=== PATIENT | female | born 1955 | race Caucasian/White ===

== ENCOUNTER 2018-08-31 18:07 | Inpatient (IN) ==
[2018-08-31] MEDS ORDERED: Sodium Chlor 0.9% Inj 500 ML IV.SIG SCH (20:00)
[2018-08-31 20:46] LABS: Baso % (Auto) 0.7 % (0.0-2.0); Hematocrit 40.7 % (35.0-46.0); Hemoglobin 14.3 gm/dL (11.6-15.3); Lymph # (Auto) 1.2 th/mm3 (1.0-4.8); Lymph % (Auto) 24.9 % (9.0-44.0); Mean Corpuscular HGB Conc 35.1 % (32.0-36.0); Mean Corpuscular Hemoglobin 31.2 pg (27.0-34.0); Mean Corpuscular Volume 88.7 fL (80.0-100.0); Mean Platelet Volume 8.8 fL (7.0-11.0); Mono # (Auto) 0.4 th/mm3 (0.0-0.9); Mono % (Auto) 9.5 % (0.0-8.0); Neut % (Auto) 63.9 % (16.0-70.0); Platelet Count 211 th/mm3 (150-450); Red Blood Count 4.59 mil/mm3 (4.00-5.30); Red Cell Distribution Width 13.6 % (11.6-17.2); White Blood Count 4.7 th/mm3 (4.0-11.0)
--- NOTE | 2018-08-31 20:57 | ED ---
HPI General Chief complaint: Medical Clearance Stated complaint: low salt level Time Seen by Provider: 08/31/18 19:10 Source: patient Mode of arrival: ambulatory Limitations: no limitations History of Present Illness HPI narrative: 62-year-old female came to the emergency room with history of generalized weakness and not feeling well. Patient says that this has been going on for past 2 days. She has history of hyperthyroidism and in the past whenever she has felt like this it is either from her thyroid level going low or too low or excessive sodium. She has received fluids in the past for this and that has made her felt better. Patient is expecting something similar at this time as well. Vital signs were stable. Patient denies of any pain anywhere. Patient denies of any vomiting or diarrhea episode. No aggravating or relieving symptoms identified. Patient says that the last time she had something similar was about 2 years ago. Onset (ago): day(s) (2) Relieving factors: none Exacerbating factors: none Associated symptoms: Reports malaise Related Data Home Medications Medication Instructions Recorded Confirmed albuterol sulfate [ProAir HFA] 1 puff INHALATION DAILY 08/31/18 08/31/18 glycopyrrolate-formoterol [Bevespi 1 puff INHALATION DAILY 08/31/18 08/31/18 Aerosphere] lisinopril 10 mg PO DAILY 08/31/18 08/31/18 methimazole 5 mg PO DAILY 08/31/18 08/31/18 [id number]-lqy-KE-lycopen-lutein 1 tab PO DAILY 08/31/18 08/31/18 [facility] sodium chloride 1,000 mg PO TID 08/31/18 08/31/18 Allergies Allergy/AdvReac Type Severity Reaction Status Date / Time penicillin G Allergy Severe Anaphylaxis Verified 08/31/18 18:22 amoxicillin Allergy Mild Hives Verified 08/31/18 18:22 Review of Systems ROS: all other systems reviewed are negative Constitutional Reports fatigue PMFSH Medical History Medical History Asthma (Acute) Hypertension (Acute) Hyponatremia (Acute) Social History Social History Substance History: Past History Second Hand Smoke Exposure: Yes Smoking Status: Never smoker How Often Do You Have a Drink Containing Alcohol: Never Recent Travel in [facility] within the Last 8 Weeks: No Recent Out of Country Travel within the Last 8 Weeks: No Immunization History Tetanus Immunization: <5 Years Exam Narrative Exam Narrative: GENERAL: Awake, alert, anxious, mild distress SKIN: Focused skin assessment warm/dry. HEAD: Atraumatic. Normocephalic. EYES: Pupils equal and round. No scleral icterus. No injection or drainage. Exophthalmus ENT: No nasal bleeding or discharge. Mucous membranes pink and moist. NECK: Trachea midline. No JVD. CARDIOVASCULAR: Regular rate and rhythm. No murmur appreciated. RESPIRATORY: No accessory muscle use. Clear to auscultation. Breath sounds equal bilaterally. GASTROINTESTINAL: Abdomen soft, non-tender, nondistended. Hepatic and splenic margins not palpable. MUSCULOSKELETAL: No obvious deformities. No clubbing. No cyanosis. No edema. NEUROLOGICAL: Awake and alert. No obvious cranial nerve deficits. Motor grossly within normal limits. Normal speech. PSYCHIATRIC: Appropriate mood and affect; insight and judgment normal. Course Initial Documented Vital Signs Temperature 98.4 F 08/31/18 18:11 Pulse Rate 81 08/31/18 18:11 Respiratory Rate 16 08/31/18 18:11 Blood Pressure 147/92 H 08/31/18 18:11 Pulse Oximetry 98 08/31/18 18:11 Last Documented Vital Signs Temperature 98.3 F 09/01/18 12:00 Pulse Rate 81 09/01/18 12:00 Respiratory Rate 16 09/01/18 12:00 Blood Pressure 141/80 H 09/01/18 12:00 Pulse Oximetry 99 09/01/18 12:00 Critical Care Time Critical Care Time: Yes Total Critical Care Time: 30 Attestation: Aggregate critical care time was 30 minutes. Time to perform other separately billable procedures was not included in the critical care time. My time did not include minutes spent treating any other patients simultaneously or on activities that did not directly contribute to the patient's treatment. The services I provided to this patient were to treat and/or prevent clinically significant deterioration that could result in: Critical hyponatremia, hypothyroidism, normal saline replacement I provided critical care services requiring my management, as noted below: Chart data review, documentation time, medication orders and management, vital sign assessments/reviewing monitor data, ordering and reviewing lab tests, ordering and interpreting/reviewing x-rays and diagnostic studies, care of the patient and discussion of the patient with the admitting physicians. Medical Decision Making MDM Narrative Medical decision making narrative: 8:56 PM CBC is back and within acceptable limits. Awaiting for chemistry. Patient is getting 500 mL's of normal saline bolus. TSH and free T4 has also been ordered. If test results are within normal limits and patient will be discharged home. 10:58 PM blood test result shows critical hyponatremia, hypochloremia and hypothyroidism. Patient was given another liter of IV fluid normal saline bolus. I have ordered for 200 mcg of p.o. Synthroid. Patient has been admitted to the hospitalist. I just updated the patient about her test results and the plan. She is agreeable to it. Medical Screen Exam Complete: Yes Emergency Medical Condition: Yes Lab Data Result diagrams: 09/01/18 10:33 09/01/18 10:34 Lab Results 08/31/18 08/31/18 08/31/18 Range/Units 20:05 20:05 23:25 WBC 4.7 (4.0-11.0) th/mm3 RBC 4.59 (4.00-5.30) mil/mm3 Hgb 14.3 (11.6-15.3) gm/dL Hct 40.7 (35.0-46.0) % MCV 88.7 (80.0-100.0) fL MCH 31.2 (27.0-34.0) pg MCHC 35.1 (32.0-36.0) % RDW 13.6 (11.6-17.2) % Plt Count 211 (150-450) th/mm3 MPV 8.8 (7.0-11.0) fL Neut % (Auto) 63.9 (16.0-70.0) % Lymph % (Auto) 24.9 (9.0-44.0) % [place] % (Auto) 9.5 H (0.0-8.0) % Eos % (Auto) 1.0 (0.0-4.0) % Baso % (Auto) 0.7 (0.0-2.0) % Neut # (Auto) 3.0 (1.8-7.7) th/mm3 Lymph # (Auto) 1.2 (1.0-4.8) th/mm3 [place] # (Auto) 0.4 (0.0-0.9) th/mm3 Eos # (Auto) 0.0 (0.0-0.4) th/mm3 Baso # (Auto) 0.0 (0.0-0.2) th/mm3 WBC Differential . Differential Comment Auto diff final Sodium 120 L* (136-145) meq/L Potassium 4.0 (3.5-5.1) meq/L Chloride 83 L (98-107) meq/L Carbon Dioxide 24.7 (21.0-32.0) meq/L Anion Gap 12 (5-15) meq/L BUN 8 (7-18) mg/dL Creatinine 0.69 (0.50-1.00) mg/dL Estimated GFR 86 L (>89) mL/min Random Glucose 86 (74-106) mg/dL Calcium 8.6 (8.5-10.1) mg/dL Total Bilirubin 0.8 (0.2-1.0) mg/dL AST 29 (15-37) U/L ALT 30 (10-53) U/L Alkaline Phosphatase 72 (45-117) U/L Total Protein 7.8 (6.4-8.2) g/dL Albumin 4.3 (3.4-5.0) g/dL TSH 11.600 H (0.358-3.740) uIU/mL Free T4 1.20 (0.76-1.46) ng/dL Urine Color Straw (Yellw/Straw) Urine Clarity Clear (Clear) Urine pH 7.0 (5.0-8.5) Ur Specific [place] 1.004 (1.002-1.035) Urine Protein Negative (Neg-Trace) mg/dL Urine Glucose (UA) Negative (Negative) mg/dL Urine Ketones 20 (Negative) mg/dL Urine Occult Blood Negative (Negative) Urine Nitrate Negative (Negative) Urine Bilirubin Negative (Negative) Urine Urobilinogen Less than 2 (Less than 2) mg/dL Ur Leukocyte Esterase Negative (Negative) Urine RBC Less than 1 (0-3) /hpf Urine WBC Less than 1 (0-5) /hpf Micro UA Comment Culture not ind Ur Microscopic Review Not Reportable Urine Culture Comments Culture not ind 08/31/18 09/01/18 09/01/18 Range/Units 23:30 10:33 10:34 WBC 2.8 L (4.0-11.0) th/mm3 RBC 4.54 (4.00-5.30) mil/mm3 Hgb 14.1 (11.6-15.3) gm/dL Hct 41.3 (35.0-46.0) % MCV 91.0 (80.0-100.0) fL MCH 31.1 (27.0-34.0) pg MCHC 34.2 (32.0-36.0) % RDW 13.4 (11.6-17.2) % Plt Count 174 (150-450) th/mm3 MPV 8.2 (7.0-11.0) fL Neut % (Auto) 70.9 H (16.0-70.0) % Lymph % (Auto) 19.1 (9.0-44.0) % [place] % (Auto) 8.3 H (0.0-8.0) % Eos % (Auto) 0.9 (0.0-4.0) % Baso % (Auto) 0.8 (0.0-2.0) % Neut # (Auto) 2.0 (1.8-7.7) th/mm3 Lymph # (Auto) 0.5 L (1.0-4.8) th/mm3 [place] # (Auto) 0.2 (0.0-0.9) th/mm3 Eos # (Auto) 0.0 (0.0-0.4) th/mm3 Baso # (Auto) 0.0 (0.0-0.2) th/mm3 WBC Differential . Differential Comment Auto diff final Sodium 134 L D 135 L (136-145) meq/L Potassium 3.9 (3.5-5.1) meq/L Chloride 102 D (98-107) meq/L Carbon Dioxide 26.2 (21.0-32.0) meq/L Anion Gap 7 (5-15) meq/L BUN 5 L (7-18) mg/dL Creatinine 0.58 (0.50-1.00) mg/dL Estimated GFR Greater than 89 (>89) mL/min Random Glucose 142 H (74-106) mg/dL Calcium 8.2 L (8.5-10.1) mg/dL Total Bilirubin 0.5 (0.2-1.0) mg/dL AST 21 (15-37) U/L ALT 26 (10-53) U/L Alkaline Phosphatase 65 (45-117) U/L Total Protein 7.4 (6.4-8.2) g/dL Albumin 3.7 D (3.4-5.0) g/dL TSH (0.358-3.740) uIU/mL Free T4 (0.76-1.46) ng/dL Urine Color (Yellw/Straw) Urine Clarity (Clear) Urine pH (5.0-8.5) Ur Specific [place] (1.002-1.035) Urine Protein (Neg-Trace) mg/dL Urine Glucose (UA) (Negative) mg/dL Urine Ketones (Negative) mg/dL Urine Occult Blood (Negative) Urine Nitrate (Negative) Urine Bilirubin (Negative) Urine Urobilinogen (Less than 2) mg/dL Ur Leukocyte Esterase (Negative) Urine RBC (0-3) /hpf Urine WBC (0-5) /hpf Micro UA Comment Ur Microscopic Review Urine Culture Comments Discharge Plan Discharge Disposition Patient Disposition: 30 Still Patient Discharge Condition Condition: Stable Discharge Order Discharge Orders: Discharge Order (Routine); Ordered 09/01/18 Ordered By: Cliff Daniel Physicians Team ED Provider: Oliva Banuelos Primary Care Provider: Sunny Fierro V Attending Provider: Cliff Daniel Status ED Status: Left Department Discharge Information Discharge Date/Time: 09/01/18 01:02
[2018-08-31 22:04] LABS: Alanine Aminotransferase 30 U/L (10-53); Albumin 4.3 g/dL (3.4-5.0); Alkaline Phosphatase 72 U/L (45-117); Anion Gap 12 meq/L (5-15); Aspartate Aminotransferase 29 U/L (15-37); Blood Urea Nitrogen 8 mg/dL (7-18); Calcium 8.6 mg/dL (8.5-10.1); Carbon Dioxide 24.7 meq/L (21.0-32.0); Chloride 83 meq/L (98-107); Glomerular Filtration Rate 86 mL/min (>89); Glucose,Random 86 mg/dL (74-106); Total Protein 7.8 g/dL (6.4-8.2)
[2018-08-31 22:08] LABS: Sodium 120 meq/L (136-145)
[2018-08-31] MEDS ORDERED: Sod Chloride 0.9% Inj 1,000 ML IV.SIG SCH (22:15)
[2018-08-31] MEDS ORDERED: Acetaminophen 325 MG Tablet PO PRN (22:34)
[2018-08-31] MEDS ORDERED: Bisacodyl 10 MG Supp RECTAL PRN (22:34)
--- NOTE | 2018-08-31 22:44 | P.HPIM ---
History of Present Illness Primary Care Physician: Sunny Fierro MD History of Present Illness: This is a 62-year-old female with a PMH of HTN, Asthma, Hypothyroidism and Chronic Hyponatremia to ER with complaints of generalized weakness x2 days, states symptoms similar to previous episodes of hyponatremia. Denies fever, chills, nausea, vomiting or diarrhea. On arrival, BP 147/92, HR 81, O2 sat 98% on RA, Afebrile. CBC unremarkable. Na 120. GFR 86. TSH 11.6, Free T4 1.20. - Diagnosis (1) Hyponatremia (2) Weakness (3) Dehydration Review of Systems PAST FAMILY HISTORY: Reviewed. No h/o DM or CAD All other systems reviewed negative except as stated in HPI PMFSH - History History Provided By: Patient - Medical History Medical History: Medical History (Last Reviewed 08/31/18 @ 20:55 by Oliva Banuelos MD) Asthma Hypertension Hyponatremia - Tobacco History Second Hand Smoke Exposure: Yes Smoking Status: Never smoker - Alcohol History How Often Do You Have a Drink Containing Alcohol: Never - Substance Use History Substance History: No History of Abuse - Travel History Recent Travel in the [place] Within the Last 8 Weeks: No Recent Travel Out of the Country Within the Last 8 Weeks: No - Immunization History Tetanus Immunization: <5 Years Medications and Allergies Active Medications: Active Medications Acetaminophen (Tylenol) 650 mg PO Q4H PRN PRN Reason: Temp > 100.4 Al Hydroxide/Mg Hydroxide (Milk Of Magnesia Liq) 30 ml PO Q12H PRN PRN Reason: Mild Constipation Albuterol (Ventolin Hfa Inh) 1 puff INH DAILY GERARDO Bisacodyl (Dulcolax Supp) 10 mg RECTAL DAILY PRN PRN Reason: SEVERE CONSITIPATION Sodium Chloride (Ns Inj) 500 mls @ 0 mls/hr IV.SIG BOLUS GERARDO Last Admin: 08/31/18 22:13 Dose: 999 mls/hr Sodium Chloride (Ns Inj) 1,000 mls @ 0 mls/hr IV.SIG BOLUS GERARDO Last Admin: 08/31/18 22:13 Dose: 999 mls/hr Sodium Chloride (Ns Inj) 1,000 mls @ 100 mls/hr IV.CONT .Q10H GERARDO Lactulose (Lactulose Liq) 30 ml PO DAILY PRN PRN Reason: SEVERE CONSITIPATION Methimazole (Tapazole) 5 mg PO DAILY [facility] Non-Formulary Medication (Glycopyrrolate-Formoterol [Bevespi Aerosphere]) 1 puff INHALATION DAILY [facility] Ondansetron HCl (Zofran Inj) 4 mg IV.PUSH Q6H PRN PRN Reason: NAUSEA OR VOMITING Senna/Docusate Sodium (Aspen-Colace) 1 tab PO BID [facility] Sennosides (Senokot) 17.2 mg PO Q12H PRN PRN Reason: Moderate Constipation Sodium Chloride (Sodium Chloride) 1 gm PO TID [facility] Allergies Allergy/AdvReac Type Severity Reaction Status Date / Time penicillin G Allergy Severe Anaphylaxis Verified 08/31/18 18:22 amoxicillin Allergy Mild Hives Verified 08/31/18 18:22 Home Medications Medication Instructions Recorded Confirmed Type albuterol sulfate [ProAir HFA] 1 puff INHALATION DAILY 08/31/18 08/31/18 History glycopyrrolate-formoterol [Bevespi 1 puff INHALATION DAILY 08/31/18 08/31/18 History Aerosphere] lisinopril 10 mg PO DAILY 08/31/18 08/31/18 History methimazole 5 mg PO DAILY 08/31/18 08/31/18 History xhqhjgrj-zyh-AE-lycopen-lutein 1 tab PO DAILY 08/31/18 08/31/18 History [[facility]] sodium chloride 1,000 mg PO TID 08/31/18 08/31/18 History Exam Vital signs: Vital Signs 08/31/18 18:11 08/31/18 18:21 Temperature 98.4 F Pulse Rate 81 72 Respiratory Rate 16 20 Blood Pressure 147/92 H 162/92 H Pulse Oximetry 98 100 Intake & Output 08/31/18 08/31/18 09/01/18 06:59 18:59 06:59 Weight 45.359 kg Narrative: PE: GENERAL: Pleasant middle-aged white female in no acute distress,. SKIN: Focused skin assessment warm and dry. HEENT: PERRLA, EOMI. No scleral icterus or conjunctival pallor. No lid lag or facial droop. +exophthalmos CARDIOVASCULAR: Regular rate and rhythm. No obvious murmurs to auscultation. No chest tenderness to palpation. RESPIRATORY: No obvious rhonchi or wheezing. Clear to auscultation. Breath sounds equal bilaterally. GASTROINTESTINAL: Abdomen soft, non-tender, nondistended. BS normal. MUSCULOSKELETAL: Extremities without clubbing, cyanosis, or edema. No obvious deformities. NEUROLOGICAL: Awake, alert and oriented x4. No focal neurologic deficits. Moving both upper and lower extremities spontaneously. PSYCHIATRIC: Appropriate mood and affect. Insight and judgment normal. Results - Labs CBC & Chem 7: 08/31/18 20:05 08/31/18 20:05 Labs: Short CBC 08/31/18 Range/Units 20:05 WBC 4.7 (4.0-11.0) th/mm3 Hgb 14.3 (11.6-15.3) gm/dL Hct 40.7 (35.0-46.0) % Plt Count 211 (150-450) th/mm3 BMP 08/31/18 20:05 Sodium 120 L* Potassium 4.0 Chloride 83 L Carbon Dioxide 24.7 BUN 8 Creatinine 0.69 Calcium 8.6 Liver Function 08/31/18 Range/Units 20:05 Total Bilirubin 0.8 (0.2-1.0) mg/dL AST 29 (15-37) U/L ALT 30 (10-53) U/L Alkaline Phosphatase 72 (45-117) U/L Albumin 4.3 (3.4-5.0) g/dL Caprini VTE Risk Assessment Caprini VTE Risk Assessment: No/Low Risk (score <= 1) Caprini Risk Assessment Model: Point Value = 1 Point Value = 2 Point Value = 3 Point Value = 5 Age 41-60 Minor surgery BMI > 25 kg/m2 Swollen legs Varicose veins or History of unexplained or recurrent spontaneous Oral contraceptives or hormone replacement Sepsis (< 1 month) Serious lung disease, including pneumonia (< 1 month) Abnormal pulmonary function Acute myocardial infarction Congestive heart failure (< 1 month) History of inflammatory bowel disease Medical patient at bed rest Age 61-74 Arthroscopic surgery Major open surgery (> 45 min) Laparoscopic surgery (> 45 min) Malignancy Confined to bed (> 72 hours) Immobilizing plaster cast Central venous access Age >= 75 History of VTE Family history of VTE Factor V Leiden Prothrombin [id number] Lupus anticoagulant Anticardiolipin antibodies Elevated serum homocysteine Heparin-induced thrombocytopenia Other congenital or acquired thrombophilia Stroke (< 1 month) Elective arthroplasty Hip, pelvis, or leg fracture Acute spinal cord injury (< 1 month) Prophylaxis Regimen: Total Risk Factor Score Risk Level Prophylaxis Regimen 0-1 Low Early ambulation 2 Moderate Order ONE of the following: *Sequential Compression Device (SCD) *Heparin 5000 units SQ BID 3-4 Higher Order ONE of the following medications: *Heparin 5000 units SQ TID *Enoxaparin/Lovenox 40 mg SQ daily (WT < 150 kg, CrCl > 30 mL/min) *Enoxaparin/Lovenox 30 mg SQ daily (WT < 150 kg, CrCl > 10-29 mL/min) *Enoxaparin/Lovenox 30 mg SQ BID (WT < 150 kg, CrCl > 30 mL/min) AND/OR *Sequential Compression Device (SCD) 5 or more Highest Order ONE of the following medications: *Heparin 5000 units SQ TID (Preferred with Epidurals) *Enoxaparin/Lovenox 40 mg SQ daily (WT < 150 kg, CrCl > 30 mL/min) *Enoxaparin/Lovenox 30 mg SQ daily (WT < 150 kg, CrCl > 10-29 mL/min) *Enoxaparin/Lovenox 30 mg SQ BID (WT < 150 kg, CrCl > 30 mL/min) AND *Sequential Compression Device (SCD) Assessment and Plan - Assessment (1) Hyponatremia Code(s): E87.1 - Hypo-osmolality and hyponatremia Status: Acute (2) Weakness Code(s): R53.1 - Weakness Status: Acute (3) Dehydration Code(s): E86.0 - Dehydration Status: Acute - Plan A/P: 1. Hyponatremia: Acute on Chronic. Na 120, no mental status changes, no seizure activity. On NaCl tabs, will continue. IVF, check repeat Na tonight and again in am for close monitoring. Telemetry. Seizure Precautions. 2. Weakness: Likely secondary to above, PT for eval/tx. 3. Dehydration: GFR 86, check U/a to eval for underlying UTI, IVF for hydration, monitor I/O, repeat labs in am. 4. DVT Prophylaxis: SCD/Teds 5. Social work for d/c planning as needed 6. Case discussed w/ ER physician at length, labs/records/imaging reviewed by me.
[2018-08-31 23:48] LABS: Bilirubin,Urine Negative (Negative); Clarity,Urine Clear (Clear); Color,Urine Straw (Yellw/Straw); Glucose,Urine (UA) Negative (Negative); Leukocyte Esterase,Urine Negative (Negative); Nitrite,Urine Negative (Negative); Specific Gravity,Urine 1.004 (1.002-1.035)
[2018-08-31] MEDS: Sod Chloride 0.9% Inj 1,000 ML IV.CONT SCH (23:57)
--- NOTE | 2018-09-01 08:44 | P.PN ---
Subjective Interval history: Follow-up hyponatremia. She is doing okay no symptoms and wants to go home. She has history of hyponatremia underwent head CT and chest x-ray with PCP results not known to the patient. She has been in her usual state of health the only change that she has been riding her bike outside more frequently than average Physical Exam Vital signs: Vital Signs 08/31/18 18:11 08/31/18 18:21 08/31/18 22:21 Temperature 98.4 F Pulse Rate 81 72 70 Respiratory Rate 16 20 20 Blood Pressure 147/92 H 162/92 H 155/75 H Pulse Oximetry 98 100 09/01/18 04:00 Temperature 97.8 F Pulse Rate 65 Respiratory Rate 18 Blood Pressure 122/63 Pulse Oximetry 97 Intake & Output 08/31/18 09/01/18 09/01/18 18:59 06:59 18:59 Intake Total 1500 / 1500 Balance 1500 / 1500 Weight 45.359 kg 32.2 kg Intake: IV 1500 / 1500 NS Inj 1,000 ML @ Wide Open IV. 1000 / 1000 SIG BOLUS GERARDO Rx#:[id number] NS Inj 500 ML @ Wide Open IV. 500 / 500 SIG BOLUS GERARDO Rx#:[id number] Other: # Voids 3 Date of Last Bowel Movement 08/31/18 Weight On Admission 45 kg Narrative: GENERAL: Pleasant middle-aged white female in no acute distress,. SKIN: Focused skin assessment warm and dry. CARDIOVASCULAR: Regular rate and rhythm. No obvious murmurs to auscultation. No chest tenderness to palpation. RESPIRATORY: No obvious rhonchi or wheezing. Clear to auscultation. Breath sounds equal bilaterally. GASTROINTESTINAL: Abdomen soft, non-tender, nondistended. BS normal. MUSCULOSKELETAL: Extremities without clubbing, cyanosis, or edema. No obvious deformities. NEUROLOGICAL: Awake, alert and oriented x4. No focal neurologic deficits. Moving both upper and lower extremities spontaneously. Results - Labs CBC & Chem 7: 09/01/18 10:33 09/01/18 10:34 Laboratory Results - last 24 hr 08/31/18 08/31/18 08/31/18 20:05 20:05 23:25 WBC 4.7 RBC 4.59 Hgb 14.3 Hct 40.7 MCV 88.7 MCH 31.2 MCHC 35.1 RDW 13.6 Plt Count 211 MPV 8.8 Neut % (Auto) 63.9 Lymph % (Auto) 24.9 [place] % (Auto) 9.5 H Eos % (Auto) 1.0 Baso % (Auto) 0.7 Neut # (Auto) 3.0 Lymph # (Auto) 1.2 Kay # (Auto) 0.4 Eos # (Auto) 0.0 Baso # (Auto) 0.0 WBC Differential . Differential Comment Auto diff final Sodium 120 L* Potassium 4.0 Chloride 83 L Carbon Dioxide 24.7 Anion Gap 12 BUN 8 Creatinine 0.69 Estimated GFR 86 L Random Glucose 86 Calcium 8.6 Total Bilirubin 0.8 AST 29 ALT 30 Alkaline Phosphatase 72 Total Protein 7.8 Albumin 4.3 TSH 11.600 H Free T4 1.20 Urine Color Straw Urine Clarity Clear Urine pH 7.0 Ur Specific [place] 1.004 Urine Protein Negative Urine Glucose (UA) Negative Urine Ketones 20 Urine Occult Blood Negative Urine Nitrate Negative Urine Bilirubin Negative Urine Urobilinogen Less than 2 Ur Leukocyte Esterase Negative Urine RBC Less than 1 Urine WBC Less than 1 Micro UA Comment Culture not ind Ur Microscopic Review Not Reportable Urine Culture Comments Culture not ind 08/31/18 23:30 WBC RBC Hgb Hct MCV MCH MCHC RDW Plt Count MPV Neut % (Auto) Lymph % (Auto) Kay % (Auto) Eos % (Auto) Baso % (Auto) Neut # (Auto) Lymph # (Auto) Kay # (Auto) Eos # (Auto) Baso # (Auto) WBC Differential Differential Comment Sodium 134 L D Potassium Chloride Carbon Dioxide Anion Gap BUN Creatinine Estimated GFR Random Glucose Calcium Total Bilirubin AST ALT Alkaline Phosphatase Total Protein Albumin TSH Free T4 Urine Color Urine Clarity Urine pH Ur Specific [place] Urine Protein Urine Glucose (UA) Urine Ketones Urine Occult Blood Urine Nitrate Urine Bilirubin Urine Urobilinogen Ur Leukocyte Esterase Urine RBC Urine WBC Micro UA Comment Ur Microscopic Review Urine Culture Comments Assessment and Plan - Assessment (1) Hyponatremia Code(s): E87.1 - Hypo-osmolality and hyponatremia Status: Acute (2) Weakness Code(s): R53.1 - Weakness Status: Acute (3) Dehydration Code(s): E86.0 - Dehydration Status: Acute - Plan 1. Hyponatremia: Acute on Chronic. Improved with NS infusion. Sodium 135. Patient has no complaints and wants to go home. She has history of hyponatremia on sodium tabs. Telemetry. Seizure Precautions. 2. Weakness: Likely secondary to above, PT recommends no further therapy 3. Dehydration: Resolved 4. DVT Prophylaxis: SCD/Teds Discharge Planning: Discharge patient to home Condition on discharge: Improved Regular Diet as tolerated Ad Lisa activity no driving Rx written: None Follow-up with primary care physician
[2018-09-01] MEDS ORDERED: methIMAzole 5 MG Tablet PO SCH (09:00)
[2018-09-01] MEDS ORDERED: Senna/Docusate Sodium 8.6/50 MG Tablet PO SCH (09:00)
[2018-09-01] MEDS ORDERED: BEVESPI PO SCH (09:00)
[2018-09-01] MEDS ORDERED: Sodium Chloride 1 GM Tablet PO SCH (09:00)
[2018-09-01 09:33] VITALS: RESP 16
[2018-09-01] MEDS ORDERED: Lisinopril 10 MG Tablet PO SCH (10:00)
[2018-09-01] MEDS: Sod Chloride 0.9% Inj 1,000 ML IV.CONT SCH (10:13)
[2018-09-01 11:04] LABS: Baso % (Auto) 0.8 % (0.0-2.0); Eos % (Auto) 0.9 % (0.0-4.0); Hematocrit 41.3 % (35.0-46.0); Hemoglobin 14.1 gm/dL (11.6-15.3); Lymph # (Auto) 0.5 th/mm3 (1.0-4.8); Lymph % (Auto) 19.1 % (9.0-44.0); Mean Corpuscular HGB Conc 34.2 % (32.0-36.0); Mean Corpuscular Hemoglobin 31.1 pg (27.0-34.0); Mean Platelet Volume 8.2 fL (7.0-11.0); Mono # (Auto) 0.2 th/mm3 (0.0-0.9); Mono % (Auto) 8.3 % (0.0-8.0); Neut % (Auto) 70.9 % (16.0-70.0); Platelet Count 174 th/mm3 (150-450); Red Blood Count 4.54 mil/mm3 (4.00-5.30); Red Cell Distribution Width 13.4 % (11.6-17.2); White Blood Count 2.8 th/mm3 (4.0-11.0)
[2018-09-01 11:38] LABS: Albumin 3.7 g/dL (3.4-5.0); Anion Gap 7 meq/L (5-15); Aspartate Aminotransferase 21 U/L (15-37); Blood Urea Nitrogen 5 mg/dL (7-18); Calcium 8.2 mg/dL (8.5-10.1); Carbon Dioxide 26.2 meq/L (21.0-32.0); Chloride 102 meq/L (98-107); Glomerular Filtration Rate Greater Than 89 mL/min (>89); Glucose,Random 142 mg/dL (74-106); Potassium 3.9 meq/L (3.5-5.1); Sodium 135 meq/L (136-145)
[2018-09-01 11:39] LABS: Alanine Aminotransferase 26 U/L (10-53)
[2018-09-01 11:45] LABS: Alkaline Phosphatase 65 U/L (45-117); Total Protein 7.4 g/dL (6.4-8.2)
[2018-09-01 13:07] VITALS: BP 141/80; PULSE 81; TEMP 98.3; O2SAT 99
== END 2018-09-01 13:06 | disposition home or self-care (01) ==
LOC: NEPC 18:07 → NEDA 22:58 → N06 09-01 02:06
PROVIDERS: ADMIT Internal Medicine; ATTEND Internal Medicine